=== PATIENT | female | born 1995 | race Hispanic/Latino ===

== ENCOUNTER 2018-09-04 02:12 | Emergency (ER) | payer OTHER ==
[2018-09-04 02:31] VITALS: BMI 23.3
[2018-09-04] MEDS ORDERED: TDAP Vaccine 0.5 mL Syr IM ONE (02:37)
--- NOTE | 2018-09-04 02:43 | ED PDOC ---
Arrival/HPI - General Chief Complaint: Needle Stick Time Seen by Provider: 09/04/18 02:13 Historian: Patient - History of Present Illness Narrative History of Present Illness (Text): 09/04/18 02:37 22 year old female, with no significant past medical history, who presents to the emergency department status post fingerstick tonight. Patient was suturing a patient's laceration while at work and accidentally punctured her left 2nd digit with a suture needle. Patient denies any decreased range of motion, weakness/numbness/tingling in the extremity, other injury, or any other complaints. Time/Duration: Prior to Arrival Symptom Onset: Sudden Symptom Course: Unchanged Activities at Onset: Light Context: Work Past Medical History - Provider Review Nursing Documentation Reviewed: Yes - Reproductive Currently : No Family/Social History - Physician Review Nursing Documentation Reviewed: Yes Family/Social History: Unknown Family HX Allergies/Home Meds Allergies/Adverse Reactions: Allergies amoxicillin Allergy (Verified 09/04/18 02:31) URTICARIA Home Medications: Home Meds Medication Instructions Recorded Confirmed No Known Home Med 09/04/18 09/04/18 Review of Systems - Physician Review All systems were reviewed & negative as marked: Yes - Review of Systems Constitutional: absent: Fevers Skin: Other (+fingerstick) Physical Exam Vital Signs Reviewed: Yes Temperature: Afebrile Blood Pressure: Normal Pulse: Regular Respiratory Rate: Normal Appearance: Positive for: Well-Appearing, Non-Toxic, Comfortable Pain Distress: None Mental Status: Positive for: Alert and Oriented X 3 - Systems Exam Head: Present: Atraumatic, Normocephalic Upper Extremity: Present: Normal ROM, NORMAL PULSES, Neurovascularly Intact, Capillary Refill < 2s, Other (Puncture wound to left 2nd distal phalanx). No: Tenderness, Swelling, Erythema, Temperature Abnormalties, Deformity Skin: Present: Warm, Dry, Normal Color. No: Rashes Psychiatric: Present: Alert, Oriented x 3, Normal Insight, Normal Concentration Medical Decision Making ED Course and Treatment: 09/04/18 02:37 Impression: 22 year old female presents s/p fingerstick with suture needle tonight while at work. Plan: -- Hepatitis Panel -- HIV Antibodies -- TDAP -- Reassess and disposition Progress Notes: - Scribe Statement The provider has reviewed the documentation as recorded by the Brianne Germain Provider Scribe Attestation: All medical record entries made by the Scribe were at my direction and personally dictated by me. I have reviewed the chart and agree that the record accurately reflects my personal performance of the history, physical exam, medical decision making, and the department course for this patient. I have also personally directed, reviewed, and agree with the discharge instructions and disposition. Disposition/Present on Arrival - Present on Arrival Any Indicators Present on Arrival: No History of DVT/PE: No History of Uncontrolled Diabetes: No Urinary Catheter: No History of Decub. Ulcer: No History Surgical Site Infection Following: None - Disposition Have Diagnosis and Disposition been Completed?: Yes Diagnosis: Needle stick injury of finger Disposition: HOME/ ROUTINE Disposition Time: 03:00 Condition: GOOD Additional Instructions: follow up with employee health Forms: [facility] (Ecuadorean)
[2018-09-04 02:44] VITALS: BP 149/75; PULSE 117; RESP 18; TEMP 98.1; O2SAT 100
[2018-09-04 13:12] LABS: HEPATITIS B SURFACE AG Negative (NEGATIVE)
[2018-09-04 13:18] LABS: HEPATITIS A IGM NEGATIVE (NEGATIVE); HEPATITIS B CORE AB NEGATIVE (NEGATIVE)
[2018-09-04 13:29] LABS: HEPATITIS C ANTIBODY NEGATIVE (NEGATIVE)
== END 2018-09-04 02:58 | disposition home or self-care (01) ==
LOC: ED 02:12
DX: S61.231A Puncture wound without foreign body of left index finger without damage to nail, initial encounter (principal); W46.0XXA Contact with hypodermic needle, initial encounter; Y92.239 Unspecified place in hospital as the place of occurrence of the external cause; Y99.0 Civilian activity done for income or pay; Z23 Encounter for immunization